=== PATIENT | male | born 1955 | race Caucasian/White ===

== ENCOUNTER → 2019-06-06 14:20 | Outpatient (BNVA) | payer MEDICARE, MEDICAID, SELFPAY | PROVIDERS: Family Provider Registered Nurse; PCP Nurse Practitioner Family; Visit Provider Registered Nurse | DX: F41.9 Anxiety disorder, unspecified (principal); E11.9 Type 2 diabetes mellitus without complications; M54.40 Lumbago with sciatica, unspecified side; I10 Essential (primary) hypertension; J01.40 Acute pansinusitis, unspecified | CPT/HCPCS: 80053; 81003; 82044; 83036 ==